=== PATIENT | female | born 2000 | race Caucasian/White ===

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

== ENCOUNTER 2019-01-07 16:00 | Outpatient (CLI) | payer MEDICAID | END 2019-01-07 16:01 | disposition home or self-care (01) | LOC: LAB 16:00 | PROVIDERS: ATTEND Nurse Practitioner Obstetrics & Gynecology | DX: Z36.8A Encounter for antenatal screening for other genetic defects (principal) | CPT/HCPCS: 36415; 81511; 81599 ==

== ENCOUNTER 2019-02-02 13:33 | Outpatient (CLI) | payer MEDICAID | END 2019-02-02 13:34 | disposition home or self-care (01) | LOC: LAB 13:33 | PROVIDERS: ATTEND Obstetrics & Gynecology | DX: Z36.8A Encounter for antenatal screening for other genetic defects (principal) | CPT/HCPCS: 36415; 81511; 81599 ==

== ENCOUNTER 2019-02-17 08:28 | Outpatient (CLI) | payer MEDICAID ==
--- NOTE | 2019-02-17 15:07 | Ultrasound Report ---
Reason: SCREENING Procedure Date: 02/17/2019 Accession Number: [id number] / [id number] Procedure: US - OB Detailed Eval CPT Code: FULL RESULT: EXAM: COMPLETE OBSTETRICAL ULTRASOUND EXAM DATE: 02/17/2019 10:58 AM. CLINICAL HISTORY: anatomic survey. COMPARISON: Ultrasound 12/14/2018 OB FIRST TRIMESTER 12/06/2018 9:20 AM. TECHNIQUE: Real-time sonographic evaluation of the fetus performed by the tag marker. Multiple visitor services representative static images were saved for review. DATING: Established EGA 19 weeks, 1 day with DENIS 07/13/2019 based on assigned dating and prior ultrasound. EGA 22 weeks, 0 days with DENIS 06/23/2019 based on discordant LMP. EGA 19 weeks, 1 day with DENIS 07/13/2019 based on the current ultrasound. GENERAL EVALUATION [place] . Cardiac activity: 148 bpm. movement: Visualized. Presentation: Variable Placenta: Posterior position. No evidence for previa. Umbilical cord: 3 vessel cord. Central placental cord origin. Amniotic fluid: Subjectively normal. MVP 5.5 cm. BIOMETRY Bi-Parietal Diameter (BPD): 4.3 cm, 19 weeks Head Circumference (HC): 16 cm, 19 weeks Abdominal Circumference (AC): 13.7 cm, 19 weeks, 1 day Femur Length (FL): 2.9 cm, 19 weeks 1 day Estimated Weight: 276 g, 45th percentile for 19 weeks, 1 day. ANATOMY The intracranial structures, profile, face/nose/lips, spine, 4 chamber heart and outflow tracts, stomach, abdominal wall and cord insertion, diaphragm, kidneys, bladder, and extremities were visualized and demonstrate no abnormality. MATERNAL STRUCTURES Uterus: Unremarkable. Cervix: Long and closed. Transabdominal length 4.2 cm. Right ovary/adnexa: Unremarkable. Left ovary/adnexa: Unremarkable. Free fluid: None. IMPRESSION: 1. Garber live intrauterine with gestational age 19 weeks, 1 day based on first ultrasound and today's exam. 2. Estimated weight is within expected limits for assigned dating. 3. Normal anatomic survey. No anatomic abnormalities are detected at this time. RADIA
== END 2019-02-17 08:29 | disposition home or self-care (01) ==
LOC: DI 08:28
PROVIDERS: ATTEND Obstetrics & Gynecology
DX: Z36.89 Encounter for other specified antenatal screening (principal)
CPT/HCPCS: 76811

== ENCOUNTER 2019-06-16 08:00 | Outpatient (CLI) | payer MEDICAID ==
[2019-06-16 20:50] LABS: TRICHOMONAS VAGINALIS DNA NEGATIVE (NEGATIVE)
== END 2019-06-16 23:59 | disposition home or self-care (01) ==
LOC: LAB.R 08:00
PROVIDERS: ATTEND Nurse Practitioner Obstetrics & Gynecology
DX: Z36.85 Encounter for antenatal screening for Streptococcus B (principal)
CPT/HCPCS: 87491; 87591; 87661; 87797

== ENCOUNTER 2019-06-16 12:19 | Outpatient (CLI) | payer MEDICAID ==
[2019-06-16 12:32] LABS: HGB - HEMOGLOBIN 12.5 g/dL (12.0-16.0); MEAN CORPUSCULAR HEMOGLOBIN 29.5 pg (27.0-31.0); MEAN CORPUSCULAR HGB CONC 33.5 g/dL (32.0-36.0); MEAN PLATELET VOLUME 10.7 fL (7.9-10.8); RED BLOOD COUNT 4.24 10^6/uL (4.20-5.40); WHITE BLOOD COUNT 9.8 x10^3/uL (4.8-10.8)
[2019-06-16 12:46] LABS: ALBUMIN 3.2 g/dL (3.2-5.5); ALBUMIN/GLOBULIN RATIO 0.8 (1.0-2.2); BILIRUBIN,TOTAL 0.3 mg/dL (0.2-1.0); CALCIUM 8.9 mg/dL (8.5-10.3); CREATININE 0.5 mg/dL (0.4-1.0); TOTAL PROTEIN 7.1 g/dL (6.7-8.2); URIC ACID 4.4 mg/dL (2.6-7.2)
[2019-06-16 12:58] LABS: CREATININE,URINE 42.4 mg/dL; PROTEIN/CREATININE RATIO,URINE 0.2 (<=0.2)
== END 2019-06-16 12:20 | disposition home or self-care (01) ==
LOC: LAB 12:19
PROVIDERS: ATTEND Nurse Practitioner Obstetrics & Gynecology
DX: O13.9 Gestational [pregnancy-induced] hypertension without significant proteinuria, unspecified trimester (principal); Z36.85 Encounter for antenatal screening for Streptococcus B
CPT/HCPCS: 36415; 80053; 82570; 84156; 84550; 85027; 87491; 87591; 87661; 87797

== ENCOUNTER 2019-07-09 20:49 | Inpatient (IN) | payer MEDICAID ==
[2019-07-09] MEDS ORDERED: SODIUM CHLORIDE FLUSH 0.9% 10 ML SYRINGE IVP PRN (20:57)
[2019-07-09] MEDS ORDERED: LACTATED RINGERS 1,000 ML IV SCH (21:00)
[2019-07-09] MEDS: miSOPROStoL 100 MCG TABLET BC SCH (22:15)
[2019-07-09 22:18] LABS: BASOPHILS % (AUTO) 0.4 %; EOSINOPHILS # (AUTO) 0.1 10^3/uL (0.0-0.7); EOSINOPHILS % (AUTO) 0.9 %; LYMPHOCYTES # (AUTO) 1.8 10^3/uL (1.5-3.5); LYMPHOCYTES % (AUTO) 17.5 %; MEAN CORPUSCULAR HEMOGLOBIN 29.1 pg (27.0-31.0); MEAN CORPUSCULAR HGB CONC 32.6 g/dL (32.0-36.0); MEAN CORPUSCULAR VOLUME 89.3 fL (81.0-99.0); MEAN PLATELET VOLUME 11.5 fL (7.9-10.8); MONOCYTES # (AUTO) 0.7 10^3/uL (0.0-1.0); MONOCYTES % (AUTO) 6.3 %; NEUTROPHILS # (AUTO) 7.8 10^3/uL (1.5-6.6); NEUTROPHILS % (AUTO) 74.3 %; PLT - PLATELET COUNT 270 10^3/uL (130-450); RED BLOOD COUNT 4.12 10^6/uL (4.20-5.40); RED CELL DISTRIBUTION WIDTH 15.3 % (12.0-15.0); WHITE BLOOD COUNT 10.5 x10^3/uL (4.8-10.8)
[2019-07-09] MEDS ORDERED: ZOLPIDEM 5 MG TABLET PO PRN (23:06)
[2019-07-10] MEDS ORDERED: SODIUM CHLORIDE FLUSH 0.9% 10 ML SYRINGE IVP SCH (01:00)
[2019-07-10] MEDS: miSOPROStoL 100 MCG TABLET BC SCH (02:34)
[2019-07-10] MEDS ORDERED: OXYTOCIN/SODIUM CHLORIDE 500 ML IV ONE (06:32)
[2019-07-10] MEDS ORDERED: OXYTOCIN 10 UNIT/ML VIAL ONE (06:35)
[2019-07-10] MEDS ORDERED: WITCH HAZEL/GLYCERIN 1 PAD TOP PRN (06:57)
[2019-07-10] MEDS ORDERED: HYDROCORTISONE 1% CREAM 28 GM TUBE PR PRN (06:57)
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
[2019-07-10] MEDS ORDERED: OXYTOCIN 10 UNIT/ML VIAL IVP ONE (07:09)
[2019-07-10] MEDS: OXYTOCIN/SODIUM CHLORIDE 500 ML IV PRN ×2 (07:11→09:48)
[2019-07-10] MEDS: ACETAMINOPHEN 500 MG TABLET PO SCH (07:29)
[2019-07-10] MEDS: IBUPROFEN 800 MG TABLET PO SCH ×2 (07:30→14:59)
--- NOTE | 2019-07-10 07:33 | DELIVERY NOTE ---
Delivery Note - Labor Labor: positive: Spontaneous - Delivery Method Delivery Method: positive: Spontaneous vaginal delivery - Cervical Ripening Method Cervical Ripening Method: positive: Misoprostil - Presentation Presentation: positive: Vertex - Nuchal Cord Nuchal Cord: positive: None - Amniotic Fluid Description Amniotic Fluid Description: positive: Clear - Episiotomy Type Episiotomy Type: positive: None - Laceration Laceration: positive: None - Delivery Outcome Delivery Outcome: positive: Livebirth - [place] : positive: Placed in direct skin contact with mother, Stimulated, Warmed, [place] used sex: positive: Female - Cord Cord: positive: 3 vessels - Placenta Placenta: positive: Intact, Spontaneous - Estimated Blood Loss Estimated Blood Loss (in cc): 350 - Post Delivery Events Post Delivery Events: positive: No post delivery events - Delivery Comments (Free Text/Narrative) Delivery Comments (Free Text/Narrative): Labor: This 18yo @ 39.4wks gestation by LMP c/w 8.4wk U/S presented on 07/09/2019 for elective induction of labor. Upon arrival SVE was deferred secondary to absence of contractions. FHR pattern demonstrated a Category I baseline throughout labor. She received 2 total doses of 50mcg misoprostol for pre-induction cervical ripening. Prior to her second dose of misoprostol she was not appreciating any contractions and denied pain/discomfort. She received her second dose of 50mcg misoprostol at approximately 0300 and shortly after noted some mild/moderate contractions. She walked the hallways for short period of time and then desired to use the jacuzzi for pain management. At approximately 0615 she felt increasingly uncomfortable and desired to get out of the jacuzzi. SROM occurred at 0625 as she sat down on the edge of the bed and was noted to be a moderate amount of clear fluid followed immediately by the urge to push. SVE c/c/+2. : Precipitous of viable female infant on 07/10/2019 at 0630 and delivered was performed by labor RN at the bedside. The was placed on maternal abdomen, stimulated, dried, and placed skin to skin. Apgars were 8/9 at 1 and 5 min respectively. The umbilical cord was doubly clamped and cut at 0633. Cord blood had been obtained. Upon my arrival at 0637 the patient was laying in the bed with her infant skin to skin and both mother and baby were noted to be in stable condition. Placenta delivered spontaneously and intact at 0640. 3VC. 10mg IM pitocin administered for hemostasis followed by initiation of pitocin IV for hemostasis. EBL 350mL. Fourth stage: Uterine fundus firm and there is no excessive bleeding. The perineum, vagina, and cervix were inspected and found to be intact. initiated. Family bonding well. Both mother and baby were left in stable condition.
[2019-07-10] MEDS ORDERED: miSOPROStoL 200 MCG TABLET ONE (09:29)
[2019-07-10] MEDS ORDERED: miSOPROStoL 200 MCG TABLET PO ONE (09:33)
[2019-07-10] MEDS ORDERED: METHYLERGONOVINE 0.2 MG/ML AMP ONE (09:54)
[2019-07-10 10:08] LABS: BASOPHILS # (AUTO) 0.1 10^3/uL (0.0-0.1); BASOPHILS % (AUTO) 0.4 %; EOSINOPHILS % (AUTO) 0.1 %; HGB - HEMOGLOBIN 10.9 g/dL (12.0-16.0); LYMPHOCYTES % (AUTO) 5.4 %; MEAN CORPUSCULAR HEMOGLOBIN 29.6 pg (27.0-31.0); MEAN CORPUSCULAR HGB CONC 33.2 g/dL (32.0-36.0); MEAN CORPUSCULAR VOLUME 89.1 fL (81.0-99.0); NEUTROPHILS # (AUTO) 17.1 10^3/uL (1.5-6.6); NEUTROPHILS % (AUTO) 88.3 %; PLT - PLATELET COUNT 269 10^3/uL (130-450); RED BLOOD COUNT 3.68 10^6/uL (4.20-5.40); RED CELL DISTRIBUTION WIDTH 15.2 % (12.0-15.0); WHITE BLOOD COUNT 19.3 x10^3/uL (4.8-10.8)
[2019-07-10] MEDS ORDERED: fentaNYL 100 MCG/2 ML VIAL IVP SCH ×2 (10:14→10:38)
[2019-07-10] MEDS ORDERED: HYDROcod/ACETAM 5/325 MG TABLET PO PRN ×2 (11:51→16:18)
--- NOTE | 2019-07-10 12:34 | PROVIDER PROGRESS NOTE ---
Subjective - Subjective Subjective: Phoned by SOTO RN who is taking care of pt with reports of increased vaginal bleeding with approximately 300ml of additional blood loss and 3-5 golf ball sized clots expelled from uterus in addition to uterus feeling boggy. Pt received 10mg IM pitocin immediately following delivery in addition to initiation of 1 completed bag of IV pitocin. 800mcg BC misoprostol administered Bolus 1 bag of IV pitocin Stat CBC ordered Stat ultrasound ordered to evaluate for retained products of conception. Reviewed potential recommendation for D&C if retained products are evident upon ultrasound. Results: CBC on admission Hgb 12.0; Hct 36.8 --> CBC now Hgb 10.9; Hct 32.8 Ultrasound pending Uterine fundus firm and bleeding well controlled following medication administration for management. Consult with Dr. Linares, termite control representative physician whom is in agreement with above plan and presented at the patient's bedside for discussion with pt and partner who verbalized understanding and agree to above plan. Objective - Vital Signs/Intake & Output Vital Signs: Vital Signs x48h Temp Pulse Resp BP Pulse Ox 07/10/19 12:03 36.6 C 07/10/19 10:21 107 H 135/83 H 99 07/10/19 10:10 116 H 16 135/83 H 99 07/10/19 09:51 117 H 123/79 07/10/19 09:45 110 H 115/76 07/10/19 08:45 121 H 129/84 H 07/10/19 08:30 122 H 124/78 07/10/19 08:16 118 H 127/81 H 07/10/19 08:00 97 134/93 H 07/10/19 07:45 95 125/76 07/10/19 07:30 99 120/79 Intake & Output: Intake & Output 07/07/19 07/08/19 07/09/19 07/10/19 23:59 23:59 23:59 23:59 Intake Total 500 Output Total 250 Balance 250 - Lab Results Fish Bones: 07/10/19 10:03 Other Labs: Lab Results x24hrs 07/10/19 07/09/19 Range/Units 10:03 22:00 WBC 19.3 H 10.5 (4.8-10.8) x10^3/uL RBC 3.68 L 4.12 L (4.20-5.40) 10^6/uL Hgb 10.9 L 12.0 (12.0-16.0) g/dL Hct 32.8 L 36.8 L (37.0-47.0) % MCV 89.1 89.3 (81.0-99.0) fL MCH 29.6 29.1 (27.0-31.0) pg MCHC 33.2 32.6 (32.0-36.0) g/dL RDW 15.2 H 15.3 H (12.0-15.0) % Plt Count 269 270 (130-450) 10^3/uL MPV 11.0 H 11.5 H (7.9-10.8) fL Neut # (Auto) 17.1 H 7.8 H (1.5-6.6) 10^3/uL Lymph # (Auto) 1.0 L 1.8 (1.5-3.5) 10^3/uL [place] # (Auto) 1.0 0.7 (0.0-1.0) 10^3/uL Eos # (Auto) 0.0 0.1 (0.0-0.7) 10^3/uL Baso # (Auto) 0.1 0.0 (0.0-0.1) 10^3/uL Absolute Nucleated RBC 0.00 0.00 x10^3/uL Nucleated RBC % 0.0 0.0 /100WBC
--- NOTE | 2019-07-10 13:09 | Ultrasound Report ---
Reason: bleeding Procedure Date: 07/10/2019 Accession Number: [id number] Procedure: US - Pelvic Limited or F/U CPT Code: Final Report FULL RESULT: EXAM: PELVIC ULTRASOUND EXAM DATE: 07/10/2019 11:26 AM. CLINICAL HISTORY: bleeding. COMPARISON: None. TECHNIQUE: Realtime transabdominal pelvic scan performed to identify the uterus and adnexa and as an overview of other pelvic structures, and to provide greater detail of the uterus and adnexa, with static image documentation. FINDINGS: Uterus: 16.6 x 8.6 x 8.4 cm, volume 627 cc. Anteverted position. Enlarged. Heterogeneous. Masses: None. Endometrium: Transabdominal measurement of the endometrium measures approximately 30 mm inferiorly and 4 mm superiorly. Complex material is present within the endometrial cavity without increased vascularity largely within the lower uterine segment. Cervix: Complex material present within the endocervical canal where visualized. Right Ovary: 3.6 x 1.7 x 2.4 cm, volume 7.6 cc. Normal echotexture. Left Ovary: 2.2 x 1.3 x 1.7 cm, volume 2.5 cc. Normal echotexture. Free Fluid: None. Other: None. IMPRESSION: 1. Enlarged heterogeneous uterus consistent with state. 2. Extensive volume of complex avascular material largely within the lower uterine segment of the uterus within the endometrial cavity most likely representing blood products/clot rather than retained tissue noting that larger volumes of blood product/clot can obscure small volumes of retained tissue. 3. Normal ovaries. RADIA
[2019-07-10] MEDS: DOCUSATE SODIUM 100 MG CAPSULE PO SCH ×2 (15:00→20:05)
[2019-07-10] MEDS ORDERED: fentaNYL 100 MCG/2 ML VIAL IVP ONE (16:47)
[2019-07-10] MEDS ORDERED: fentaNYL 100 MCG/2 ML VIAL ONE (16:49)
--- NOTE | 2019-07-10 17:21 | PROVIDER PROGRESS NOTE ---
Subjective - Subjective Subjective: S: Bonding well with baby. Has been without difficulty throughout the day. Feeling some cramping but this has gradually improved. She has not passed any additional clots. Her bleeding remains scant. O: BP normotensive. 100mcg Fentanyl IVP administered prior to vigorous fundal massage which results in small clot expelled. Uterine fundus remains firm at U-1. A: 18yo -->P1 day of delivery s/p TSVD of viable female infant this morning at 0630am. S/p 2 complete bags of pitocin administered previously in addition to 10mg IM pitocin immediately s/p delivery s/p 800mcg BC misoprostol P: Continue expectant management. Type and crossmatch for 2 units as a precaution. Repeat CBC in the am Reviewed plan of care with donor services team leader physician who is in agreement with expectant management Reviewed plan of care with pt and partner at the bedside who are all in agreement with above plan and deny further questions or concerns at this time. Objective - Vital Signs/Intake & Output Vital Signs: Vital Signs x48h Temp Pulse Resp BP Pulse Ox 07/10/19 15:00 36.6 C 94 16 122/68 99 07/10/19 12:03 36.6 C 07/10/19 10:21 107 H 135/83 H 99 07/10/19 10:10 116 H 16 135/83 H 99 07/10/19 09:51 117 H 123/79 07/10/19 09:45 110 H 115/76 Intake & Output: Intake & Output 07/07/19 07/08/19 07/09/19 07/10/19 23:59 23:59 23:59 23:59 Intake Total 500 Output Total 450 Balance 50 - Lab Results Fish Bones: 07/10/19 10:03 Other Labs: Lab Results x24hrs 07/10/19 07/09/19 Range/Units 10:03 22:00 WBC 19.3 H 10.5 (4.8-10.8) x10^3/uL RBC 3.68 L 4.12 L (4.20-5.40) 10^6/uL Hgb 10.9 L 12.0 (12.0-16.0) g/dL Hct 32.8 L 36.8 L (37.0-47.0) % MCV 89.1 89.3 (81.0-99.0) fL MCH 29.6 29.1 (27.0-31.0) pg MCHC 33.2 32.6 (32.0-36.0) g/dL RDW 15.2 H 15.3 H (12.0-15.0) % Plt Count 269 270 (130-450) 10^3/uL MPV 11.0 H 11.5 H (7.9-10.8) fL Neut # (Auto) 17.1 H 7.8 H (1.5-6.6) 10^3/uL Lymph # (Auto) 1.0 L 1.8 (1.5-3.5) 10^3/uL [facility] # (Auto) 1.0 0.7 (0.0-1.0) 10^3/uL Eos # (Auto) 0.0 0.1 (0.0-0.7) 10^3/uL Baso # (Auto) 0.1 0.0 (0.0-0.1) 10^3/uL Absolute Nucleated RBC 0.00 0.00 x10^3/uL Nucleated RBC % 0.0 0.0 /100WBC
[2019-07-11] MEDS: ACETAMINOPHEN 500 MG TABLET PO SCH ×3 (04:34→20:32)
[2019-07-11] MEDS: IBUPROFEN 800 MG TABLET PO SCH ×3 (04:34→18:24)
[2019-07-11 06:29] LABS: BASOPHILS % (AUTO) 0.4 %; EOSINOPHILS # (AUTO) 0.1 10^3/uL (0.0-0.7); EOSINOPHILS % (AUTO) 1.3 %; HGB - HEMOGLOBIN 9.3 g/dL (12.0-16.0); LYMPHOCYTES # (AUTO) 1.7 10^3/uL (1.5-3.5); LYMPHOCYTES % (AUTO) 18.4 %; MEAN CORPUSCULAR HEMOGLOBIN 29.3 pg (27.0-31.0); MEAN CORPUSCULAR HGB CONC 32.5 g/dL (32.0-36.0); MEAN CORPUSCULAR VOLUME 90.2 fL (81.0-99.0); MEAN PLATELET VOLUME 10.7 fL (7.9-10.8); MONOCYTES # (AUTO) 0.8 10^3/uL (0.0-1.0); NEUTROPHILS # (AUTO) 6.7 10^3/uL (1.5-6.6); NEUTROPHILS % (AUTO) 71.5 %; PLT - PLATELET COUNT 180 10^3/uL (130-450); RED BLOOD COUNT 3.17 10^6/uL (4.20-5.40); RED CELL DISTRIBUTION WIDTH 15.5 % (12.0-15.0); WHITE BLOOD COUNT 9.4 x10^3/uL (4.8-10.8)
--- NOTE | 2019-07-11 09:06 | PROVIDER PROGRESS NOTE ---
Subjective - Subjective Subjective: S: Bonding well with baby. with little difficultly other than they are having trouble at times getting baby to wake up enough to feed or to stay awake at the breast during a feed. She states when they do feed she can feel a gentle tug rather than a pinch and overall nursing feels comfortable. She states her pain is feeling much better controlled other than she still reports some increased discomfort when her fundus is checked. She is rating her pain 2-3/10 and does feel well controlled with ibuprofen and tylenol. Bleeding decreased and is light. She did not have any larger clots expelled last night. She denies feeling light headed or dizzy. She states they were able to get some good rest in last night and they do understanding that they are to work on getting more consistent feeds in today and throughout the night. O: Hgb 12.0-->10.9-->9.3 Hct 36.8-->32.8-->28.6 WBC 10.5-->19.3-->9.4 PLT 270-->269-->180 T 36.9, BP 126/85, HR 94-100, RR 18 Heart RRR w/o M/G/R, lungs CTAB, abdomen soft with fundus firm at U-1 with some tenderness noted upon palpation however the tenderness is noted prior to reaching the fundus and starts almost immediately when touching her abdomen. Pt historically suffers from anxiety and at this time it is felt that there is likely an associated anxiety response to her slight tenderness. She has no other signs of infection (WBC WNL, afebrile). Perineum intact, light lochia rubra. Bilateral LE's no edema. A: 18yo -->P1 s/p TSVD of viable female infant s/p precipitous vaginal delivery P: Continue routine pp care and medications. Repeat CBC in the morning. Plan discharge home tomorrow. Pt and partner at the bedside verbalized understanding and agree to above plan. They deny further questions or concerns at this time. Objective - Vital Signs/Intake & Output Vital Signs: Vital Signs x48h Temp Pulse Resp BP Pulse Ox 07/11/19 08:15 36.9 C 100 18 126/85 H 97 07/11/19 04:30 97 18 130/80 100 Intake & Output: Intake & Output 07/08/19 07/09/19 07/10/19 07/11/19 23:59 23:59 23:59 23:59 Intake Total 500 500 Output Total 700 350 Balance -200 150 - Lab Results Fish Bones: 07/11/19 06:25 Other Labs: Lab Results x24hrs 07/11/19 07/10/19 07/09/19 Range/Units 06:25 10:03 23:02 WBC 9.4 19.3 H (4.8-10.8) x10^3/uL RBC 3.17 L 3.68 L (4.20-5.40) 10^6/uL Hgb 9.3 L 10.9 L (12.0-16.0) g/dL Hct 28.6 L 32.8 L (37.0-47.0) % MCV 90.2 89.1 (81.0-99.0) fL MCH 29.3 29.6 (27.0-31.0) pg MCHC 32.5 33.2 (32.0-36.0) g/dL RDW 15.5 H 15.2 H (12.0-15.0) % Plt Count 180 269 (130-450) 10^3/uL MPV 10.7 11.0 H (7.9-10.8) fL Neut # (Auto) 6.7 H 17.1 H (1.5-6.6) 10^3/uL Lymph # (Auto) 1.7 1.0 L (1.5-3.5) 10^3/uL [facility] # (Auto) 0.8 1.0 (0.0-1.0) 10^3/uL Eos # (Auto) 0.1 0.0 (0.0-0.7) 10^3/uL Baso # (Auto) 0.0 0.1 (0.0-0.1) 10^3/uL Absolute Nucleated RBC 0.00 0.00 x10^3/uL Nucleated RBC % 0.0 0.0 /100WBC Blood Type O POSITIVE Antibody Screen NEGATIVE Crossmatch IS Only See Detail
[2019-07-11] MEDS: DOCUSATE SODIUM 100 MG CAPSULE PO SCH ×2 (11:50→20:32)
[2019-07-12] MEDS: IBUPROFEN 800 MG TABLET PO SCH ×2 (00:36→06:38)
[2019-07-12] MEDS: ACETAMINOPHEN 500 MG TABLET PO SCH (04:36)
[2019-07-12 08:11] VITALS: BP 126/83
--- NOTE | 2019-07-12 08:23 | Discharge Plan ---
Discharge Plan Problem Reviewed?: Yes Disposition: Home, Self Care Condition: Good Diet: Regular Activity Restrictions: No Restrictions Shower Restrictions: No Assistance Devices: Wheelchair Weight Bearing: Full Weight No Smoking: If you smoke, Please STOP! Call for help. Follow-up with: Madina Harden CNM, ARNP [Provider Admit Priv/Credential] -
--- NOTE | 2019-07-12 08:29 | PROVIDER PROGRESS NOTE ---
Subjective - Subjective Subjective: FINAL PROGRESS NOTE: S: Bonding well with baby. without difficulty and states she was more vigorous at the breast all throughout the night. Experiencing some nipple tenderness bilaterally but overall feeling okay. Bleeding decreased and is light. Pain well controlled with oral medications and she states over night her pain has been less than it was yesterday. They strongly desire to go home today. O: Heart RRR w/o M/G/R, lungs CTAB, abdomen soft and nontender with fundus firm at U-2, perineum intact, bilateral LE's no edema. A: 18yo -->P1 s/p TSVD of viable female infant Perineum intact P: Reviewed pp self care and warning s/sx Advised continuation of PNV while Advised continuation of ibuprofen and tylenol OTC as needed for pain management Return in 1 week for support visit or in 3 weeks for routine pp visit or sooner PRN. Pt and partner at the bedside both verbalized understanding and agree to above plan. They deny further questions or concerns at this time. Objective - Vital Signs/Intake & Output Vital Signs: Vital Signs x48h Temp Pulse Resp BP Pulse Ox 07/12/19 08:00 36.5 C 100 16 126/83 H 99 07/12/19 04:28 37.0 C 101 H 16 128/71 98 Intake & Output: Intake & Output 07/09/19 07/10/19 07/11/19 07/12/19 23:59 23:59 23:59 23:59 Intake Total 500 500 Output Total 700 350 Balance -200 150 - Lab Results Fish Bones: 07/11/19 06:25
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
[2019-07-12] MEDS: DOCUSATE SODIUM 100 MG CAPSULE PO SCH (11:15)
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
== END 2019-07-12 12:26 | disposition home or self-care (01) | DRG 806 ==
LOC: WFO 20:49 → FBP 20:53 → WFO 20:56 → FBP 20:57 → OBSVTOIN 07-10 14:32 → FBP 07-11 09:10
PROVIDERS: ADMIT Nurse Practitioner Obstetrics & Gynecology; ATTEND Nurse Practitioner Obstetrics & Gynecology
PROC: 10E0XZZ Delivery of Products of Conception, External Approach (ICD-10-PCS; principal; 2019-07-10)
DX: O99.344 Other mental disorders complicating childbirth (principal); O72.1 Other immediate postpartum hemorrhage; Z37.0 Single live birth; F41.9 Anxiety disorder, unspecified; O62.3 Precipitate labor; Z3A.39 39 weeks gestation of pregnancy; Z87.898 Personal history of other specified conditions
CPT/HCPCS: 36415; 76857; 85025; 86850; 86900; 86901; 86920; A9270; G0378; J7120

== ENCOUNTER 2019-08-24 16:13 | Emergency (ER) | payer MEDICAID ==
--- NOTE | 2019-08-24 16:34 | ED Physician Documentation ---
PD HPI LOWER EXT INJURY - Stated complaint Stated Complaint: LT ANKLE INJ - Chief complaint Chief Complaint: Ext Problem - History obtained from History obtained from: Patient - History of Present Illness PD HPI LOW EXT INJURY LOCATION: Left, Ankle, Foot Type of injury: Fall, Twist Where injury occurred: Home Timing - onset: How many days ago (3) Timing - duration: Days (3) Timing - details: Gradual onset Pain level max: 7 Pain level now: 6 Improved by: Rest Worsened by: Moving, Palpating Associated symptoms: No: Weakness, Numbness, Tingling Contributing factors: No: Anticoagulated Recently seen: Not recently seen Review of Systems : denies: Now EGA Skin: denies: Rash Musculoskeletal: denies: Neck pain, Back pain Neurologic: denies: Headache PD PAST MEDICAL HISTORY - Past Medical History Cardiovascular: None Respiratory: None Neuro: None Endocrine/Autoimmune: None GI: Ulcers 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 : None HEENT: None Psych: Depression, Anxiety Musculoskeletal: None Derm: None - Past Surgical History Past Surgical History: Yes General: Cholecystectomy HEENT: Tonsil/Adenoidectomy - Present Medications Home Medications: Ambulatory Orders Medication Instructions Recorded Confirmed Metoclopramide [Reglan] 10 mg PO Q6H PRN #10 tablet 11/17/18 Nitrofurantoin Monohyd/M-Cryst 100 mg PO BID #10 capsule 11/17/18 [Macrobid 100 mg Capsule] Pnv No.95/Ferrous Fum/Folic AC 1 tab PO DAILY 11/17/18 11/17/18 [ Caplet] - Allergies Allergies/Adverse Reactions: Allergies Allergy/AdvReac Type Severity Reaction Status Date / Time No Known Drug Allergies Allergy Verified 08/24/19 16:18 - Social History Does the pt smoke?: No Smoking Status: Never smoker Does the pt drink ETOH?: No Does the pt have substance abuse?: No - Immunizations Immunizations are current?: Yes - POLST Patient has POLST: No PD ED PE NORMAL - Vitals Vital signs reviewed: Yes - General General: Alert and oriented X 3, No acute distress - Derm Derm: Warm and dry - Extremities Extremities: Other (Tender to palpation over the lateral aspect of the left foot as well as the lateral malleolus of the left ankle. Neurovascular intact. No tenderness over the proximal tibia or fibula.) - Neuro Neuro: Alert and oriented X 3 Results - Vitals Vitals: Vital Signs - 24 hr 08/24/19 16:15 Temperature 36.4 C L Heart Rate 104 H Respiratory 22 Rate Blood Pressure 131/92 H O2 Saturation 97 Oxygen O2 Source Room air - Rads (name of study) Left ankle x-ray Radiology: Prelim report reviewed, EMP read contemporaneously, See rad report (No acute abnormality) L foot xray Radiology: Prelim report reviewed, EMP read contemporaneously, See rad report (No acute abnormality) PD MEDICAL DECISION MAKING - ED course Complexity details: reviewed results, re-evaluated patient, considered differential, d/w patient ED course: Patient with a left ankle sprain. Placed in a gel splint for comfort. She does not have any fractures on x-ray. We will make her weightbearing as tolerated. Patient counseled regarding signs and symptoms for which I believe and urgent re-evaluation would be necessary. Patient with good understanding of and agreement to plan and is comfortable going home at this time This document was made in part using voice recognition software. While efforts are made to proofread this document, sound alike and grammatical errors may occur. Departure - Departure Disposition: 01 Home, Self Care Clinical Impression: Sprain of ankle, left Qualifiers: Encounter type: initial encounter Involved ligament of ankle: unspecified ligament Qualified Code(s): S93.402A - Sprain of unspecified ligament of left ankle, initial encounter Condition: Good Instructions: ED Sprain Ankle Follow-Up: Shena Craig MD [Primary Care Provider] - (In 1 to 2 weeks) Comments: Return if you worsen. You can bear weight as tolerated. Use Motrin and Tylenol as needed for pain. Your x-rays do not show any fractures today.
--- NOTE | 2019-08-24 17:52 | XRAY Report ---
Reason: fall, L ankle and foot pain Procedure Date: 08/24/2019 Accession Number: [id number] / [id number] Procedure: XR - Foot 3 View LT CPT Code: Final Report FULL RESULT: EXAM: LEFT FOOT RADIOGRAPHY EXAM DATE: 08/24/2019 05:02 PM. CLINICAL HISTORY: Fall, L ankle and foot pain. COMPARISON: None. TECHNIQUE: 3 views. FINDINGS: Bones: Normal. No fractures or bone lesions. Joints: Normal. No subluxations. Soft Tissues: Calcifications at the Achilles tendon insertion. Soft tissue swelling. IMPRESSION: Normal foot radiography. RADIA
--- NOTE | 2019-08-24 17:52 | XRAY Report ---
Reason: fall, L ankle and foot pain Procedure Date: 08/24/2019 Accession Number: [id number] / [id number] Procedure: XR - Ankle 3 View LT CPT Code: Final Report FULL RESULT: EXAM: LEFT ANKLE RADIOGRAPHY EXAM DATE: 08/24/2019 05:00 PM. CLINICAL HISTORY: Fall, L ankle and foot pain. COMPARISON: FOOT 3 VIEW LT 08/24/2019 4:38 PM. TECHNIQUE: 3 views. FINDINGS: Bones: Normal. No fractures or bone lesions. Joints: Normal. No effusion. No subluxations. The ankle mortise is normally aligned. Soft Tissues: Calcifications Achilles tendon insertion. No soft tissue swelling. IMPRESSION: Calcifications at the Achilles tendon insertion RADIA
[2019-08-24 18:09] VITALS: BP 124/84
== END 2019-08-24 18:10 | disposition home or self-care (01) ==
LOC: ED 16:13
DX: S93.402A Sprain of unspecified ligament of left ankle, initial encounter (principal); X50.1XXA Overexertion from prolonged static or awkward postures, initial encounter; Y93.01 Activity, walking, marching and hiking; Y92.89 Other specified places as the place of occurrence of the external cause
CPT/HCPCS: 99283

== ENCOUNTER 2020-12-09 19:03 | Emergency (ER) | payer MEDICAID ==
[2020-12-09 19:42] LABS: BASOPHILS # (AUTO) 0.1 10^3/uL (0.0-0.1); BASOPHILS % (AUTO) 0.3 %; EOSINOPHILS # (AUTO) 0.1 10^3/uL (0.0-0.7); EOSINOPHILS % (AUTO) 0.4 %; HCT - HEMATOCRIT 40.9 % (37.0-47.0); HGB - HEMOGLOBIN 13.9 g/dL (12.0-16.0); LYMPHOCYTES # (AUTO) 1.7 10^3/uL (1.5-3.5); LYMPHOCYTES % (AUTO) 9.1 %; MEAN CORPUSCULAR HEMOGLOBIN 29.4 pg (27.0-31.0); MEAN CORPUSCULAR VOLUME 86.7 fL (81.0-99.0); MEAN PLATELET VOLUME 10.2 fL (7.9-10.8); MONOCYTES # (AUTO) 1.3 10^3/uL (0.0-1.0); MONOCYTES % (AUTO) 6.7 %; NEUTROPHILS # (AUTO) 15.7 10^3/uL (1.5-6.6); NEUTROPHILS % (AUTO) 83.1 %; PLT - PLATELET COUNT 302 10^3/uL (130-450); RED BLOOD COUNT 4.72 10^6/uL (4.20-5.40); RED CELL DISTRIBUTION WIDTH 13.1 % (12.0-15.0); WHITE BLOOD COUNT 18.9 x10^3/uL (4.8-10.8)
[2020-12-09 19:44] LABS: BILIRUBIN,URINE NEGATIVE (NEGATIVE); GLUCOSE, URINE (UA) NEGATIVE (NEGATIVE); KETONES,URINE (UA) NEGATIVE (NEGATIVE); LEUKOCYTE ESTERASE, URINE NEGATIVE (NEGATIVE); NITRITE,URINE NEGATIVE (NEGATIVE); OCCULT BLOOD,URINE LARGE (NEGATIVE); PH,URINE 7.5 PH (5.0-7.5); PROTEIN,URINE TRACE mg/dL (NEGATIVE); UROBILINOGEN,URINE 0.2 (NORMAL) E.U./dL (NORMAL)
[2020-12-09 19:46] LABS: CLARITY,URINE HAZY (CLEAR); HCG UR QUAL NEGATIVE
[2020-12-09 19:55] LABS: ALBUMIN/GLOBULIN RATIO 1.4 (1.0-2.2); BILIRUBIN,TOTAL 1.2 mg/dL (0.2-1.0); CALCIUM 9.7 mg/dL (8.5-10.3); CREATININE 0.7 mg/dL (0.4-1.0); POTASSIUM 3.8 mmol/L (3.5-5.0); TOTAL PROTEIN 8.5 g/dL (6.7-8.2)
[2020-12-09 20:38] LABS: BACTERIA,URINE Rare /HPF (None Seen); RBC,URINE TNTC /HPF (0-5); SQUAMOUS EPITHELIAL CELL,UR FEW Squamous (<= Few); WBC,URINE 0-3 /HPF (0-5)
[2020-12-09] MEDS ORDERED: ONDANSETRON 4 MG/2 ML VIAL IVP STA (20:38)
[2020-12-09] MEDS ORDERED: SODIUM CHLORIDE 0.9% 1,000 ML IV STA (20:49)
[2020-12-09] MEDS ORDERED: KETOROLAC 15 MG/ML VIAL IVP STA (20:50)
[2020-12-09] MEDS ORDERED: MORPHINE 2 MG/ML CARPUJECT IVP STA (20:56)
--- NOTE | 2020-12-09 20:56 | ED Physician Documentation ---
History of Present Illness - Stated complaint Stated Complaint: LLQ PX/NAUSEA - Chief complaint Chief Complaint: Abd Pain - History obtained from History obtained from: Patient, Family (mom) - Additonal information Additional information: 28-year-old woman with past medical history of constipation, gallstones status post cholecystectomy, presents with sudden onset left lower quadrant pain at 12:30 PM, constant since that time, severe, associated with nausea no vomiting. Patient is currently menstruating. Denies urinary symptoms, fever, back pain, diarrhea. Last BM yesterday was normal with no blood in the stool. FH diverticulitis, ovarian cancer Review of Systems Ten Systems: 10 systems reviewed and negative Constitutional: denies: Fever, Chills GI: reports: Abdominal Pain, Nausea, Constipation. denies: Vomiting, Diarrhea : reports: Vaginal bleeding. 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 : None HEENT: None Psych: Depression, Anxiety Musculoskeletal: None Derm: None - Past Surgical History Past Surgical History: Yes General: Cholecystectomy HEENT: Tonsil/Adenoidectomy - Present Medications Home Medications: Ambulatory Orders Medication Instructions Recorded Confirmed Ondansetron Odt [Zofran Odt] 4 mg TL Q6H PRN #10 tablet 12/10/20 - Allergies Allergies/Adverse Reactions: Allergies Allergy/AdvReac Type Severity Reaction Status Date / Time No Known Drug Allergies Allergy Verified 12/09/20 19:07 - Social History Does the pt smoke?: No Smoking Status: Never smoker Does the pt drink ETOH?: No Does the pt have substance abuse?: No - Immunizations Immunizations are current?: Yes - POLST Patient has POLST: No PD ED PE NORMAL - Vitals Vital signs reviewed: Yes - General General: Alert and oriented X 3, Well developed/nourished, Other (tearful) - HEENT HEENT: Atraumatic, PERRL, EOMI - Neck Neck: Supple, no meningeal sign - Cardiac Cardiac: Other (tachycardic rate, reg rhythm) - Respiratory Respiratory: No respiratory distress - Abdomen Abdomen: Non tender, Non distended, Other (LLQ ttp otherwise ntnd) - Back Back: No CVA TTP - Derm Derm: Normal color, Warm and dry - Extremities Extremities: No deformity - Neuro Neuro: Alert and oriented X 3, No motor deficit, No sensory deficit - Psych Psych: Normal mood, Normal affect Results - Vitals Vitals: Vital Signs - 24 hr 12/09/20 12/09/20 12/09/20 19:07 19:42 21:10 Temperature 37.4 C 36.8 C Heart Rate 125 H 129 H 90 Respiratory 18 20 18 Rate Blood Pressure 150/99 H 118/88 H 104/62 O2 Saturation 100 100 100 12/09/20 12/10/20 12/10/20 23:00 01:00 01:55 Temperature 35.8 C L Heart Rate 100 88 77 Respiratory 16 16 16 Rate Blood Pressure 110/76 112/76 105/70 O2 Saturation 98 97 100 Oxygen O2 Source Room air - Labs Labs: Laboratory Tests 12/09/20 12/09/20 12/09/20 19:20 19:20 19:36 WBC 18.9 H RBC 4.72 Hgb 13.9 Hct 40.9 MCV 86.7 MCH 29.4 MCHC 34.0 RDW 13.1 Plt Count 302 MPV 10.2 Neut # (Auto) 15.7 H Lymph # (Auto) 1.7 [place] # (Auto) 1.3 H Eos # (Auto) 0.1 Baso # (Auto) 0.1 Absolute Nucleated RBC 0.00 Nucleated RBC % 0.0 Sodium 136 Potassium 3.8 Chloride 102 Carbon Dioxide 23 Anion Gap 11.0 BUN 15 Creatinine 0.7 Estimated GFR (MDRD) 106 Glucose 91 Calcium 9.7 Total Bilirubin 1.2 H AST 17 ALT 19 Alkaline Phosphatase 74 Total Protein 8.5 H Albumin 5.0 Globulin 3.5 Albumin/Globulin Ratio 1.4 Lipase 22 Urine Color YELLOW Urine Clarity HAZY Urine pH 7.5 Ur Specific [place] 1.015 Urine Protein TRACE Urine Glucose (UA) NEGATIVE Urine Ketones NEGATIVE Urine Occult Blood LARGE H Urine Nitrite NEGATIVE Urine Bilirubin NEGATIVE Urine Urobilinogen 0.2 (NORMAL) Ur Leukocyte Esterase NEGATIVE Urine RBC TNTC H Urine WBC 0-3 Ur Squamous Epith Cells FEW Squamous Urine Bacteria Rare Ur Microscopic Review INDICATED Urine Culture Comments NOT INDICATED Urine HCG, Qual NEGATIVE PD MEDICAL DECISION MAKING - ED course ED course: 20-year-old presented with sudden onset left lower quadrant pain, significant leukocytosis. Will obtain CT and ultrasound to evaluate. CT and ultrasound unremarkable. Patient feeling better after symptomatic management. Return precautions given. 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 Departure - Departure Disposition: 01 Home, Self Care Clinical Impression: Abdominal pain, Nausea Condition: Good Instructions: ED Abdominal Pain Unkn Cause Prescriptions: Ondansetron Odt [Zofran Odt] 4 mg TL Q6H PRN #10 tablet PRN Reason: Nausea / Vomiting Comments: You are seen in the emergency department for abdominal pain. You are not and your urine does not show signs of infection. Your CT and ultrasound were normal and had normal blood flow to the ovaries. Your lab work was normal with the exception of an elevated white blood cell count of 18. This is a nonspecific sign of inflammation in the body. You should follow-up with your primary doctor and with your SILVER LAP MACHINE TENDER in regards to the symptoms. Return to the emergency department if you have any new or worsening symptoms or other concerns. Discharge Date/Time: 12/10/20 02:21
[2020-12-09] MEDS ORDERED: IOPAMIDOL-300 100 ML VIAL ONE (21:21)
[2020-12-09] MEDS ORDERED: IOPAMIDOL-300 100 ML VIAL IVP ONE (21:56)
[2020-12-10] MEDS ORDERED: HYDROmorphone 1 MG/ML CARPUJECT IVP STA (01:03)
[2020-12-10] MEDS ORDERED: oxyCODONE/ACET 5/325 Prepack 4 PO STA (01:53)
[2020-12-10 01:56] VITALS: BP 105/70
--- NOTE | 2020-12-10 09:54 | Ultrasound Report ---
PROCEDURE: Pelvic w/Transvag+Doppler Comp INDICATIONS: sudden LLQ pain 12:30pm TECHNIQUE: Real-time scanning was performed of the pelvic organs, with image documentation. Additional endovagi nal scanning was necessary due to incomplete visualization of the adnexal and endometrial structures by transabdominal scanning. COMPARISON: Prior pelvic ultrasound, 07/09/2020. Correlation is made with abdomen and pelvis CT, 2020. FINDINGS: No pathologic free abdominal or pelvic fluid. Uterus: Uterus is normal in size at 8.9 x 4.7 x 5.6 cm. The endometrium measures 21 mm in combined thickness. Ovaries: The right ovary measures 3.7 x 2.1 x 2.4 cm and demonstrates an echogenic solid focus withi n it that measures 9 mm. The left ovary measures 3.8 x 2.5 x 3.2 cm and demonstrates a solid vascular structure within it that measures 2.2 x 2.2 x 2 cm. Normal-appearing arterial waveforms are confirmed to each ovary. No adnexal masses are seen on either side. IMPRESSION: Likely hemorrhagic cyst seen of the left ovary. Differential diagnosis includes a corpus luteum. If c linically appropriate, please consider a short-term follow-up ultrasound in 6 weeks to ensure resolut ion/improvement. Negative for ovarian torsion. Potential right ovarian dermoid. Mildly thickened endometrial stripe measuring 21 mm. This is improved compared to the 07/10/2019 exami nation. Note: No significant discrepancy from the preliminary report. Reviewed by: Joel Artis MD on 12/10/2020 8:53 AM YAIR Approved by: Joel Artis MD on 12/10/2020 8:53 AM YAIR Station ID: [id number]
--- NOTE | 2020-12-10 09:58 | CT Report ---
PROCEDURE: Abdomen/Pelvis W INDICATIONS: LLQ pain CONTRAST: IV CONTRAST: Isovue 300 ml: 100 PO CONTRAST: *NO PO CONTRAST TECHNIQUE: After the administration of IV contrast, 5 mm thick sections acquired from the diaphragms to the symp hysis. 5 mm thick coronal and sagittal reformats were acquired. For radiation dose reduction, the f ollowing was used: automated exposure control, adjustment of mA and/or kV according to patient size. COMPARISON: Correlation is made with the accompanying pelvic ultrasound, 12/09/2020. FINDINGS: Image quality: Excellent. ABDOMEN: Lung bases: Lung bases are clear. Heart size is normal. Solid organs: Liver and spleen are normal in size and enhancement. Gallbladder has been removed. B iliary system is non dilated. Pancreas enhances normally. No adrenal nodules. Kidneys demonstrate normal size and enhancement, without hydronephrosis. Peritoneum and bowel: Bowel loops demonstrate normal wall thickness and caliber. No free fluid or a ir. A normal appendix is incidentally noted. Nodes and vessels: No retroperitoneal or mesenteric adenopathy by size criteria. Aorta and inferior vena cava are normal in size. Miscellaneous: A tiny fat-containing periumbilical hernia is seen. PELVIS: Genitourinary: Bladder wall thickness is normal. Within the left ovary, there is a hypervascular st ructure that measures up to 1.6 cm. Miscellaneous: No inguinal hernias or adenopathy. Bones: No suspicious bony lesions. No vertebral body compression fractures. This patient has trans itional anatomy. For the purposes of this examination, the level with the small vestigial ribs is con sidered to be T12. By this numbering scheme, the L5 level is transitional and highly sacralized. IMPRESSION: No acute abnormality is seen to explain the patient's presenting history. Within the left ovary, there is a hypervascular lesion, which may represent a corpus luteum. Differen tial diagnosis includes a hemorrhagic cyst, however. Incidental note is made of: Cholecystectomy Tiny fat-containing periumbilical hernia Transitional lumbar anatomy, with a highly sacralized L5 level. Note: No significant discrepancy from the preliminary report. Reviewed by: Joel Artis MD on 12/10/2020 8:57 AM YAIR Approved by: Joel Artis MD on 12/10/2020 8:57 AM YAIR Station ID: [id number]
== END 2020-12-10 02:21 | disposition home or self-care (01) ==
LOC: ED 19:03
DX: R10.32 Left lower quadrant pain (principal); R11.0 Nausea; D72.829 Elevated white blood cell count, unspecified; N83.202 Unspecified ovarian cyst, left side; Z80.41 Family history of malignant neoplasm of ovary; Z83.79 Family history of other diseases of the digestive system; Z90.49 Acquired absence of other specified parts of digestive tract
CPT/HCPCS: 36415; 74177; 76830; 76856; 80053; 81001; 81025; 83690; 85025; 93975; 96361; 96374; 96375; 99284; 99285; J1170; Q9967; 81003; 87086

== ENCOUNTER 2021-08-22 14:34 | Outpatient (CLI) | payer MEDICAID | END 2021-08-22 14:35 | disposition home or self-care (01) | LOC: LAB 14:34 | PROVIDERS: ATTEND Nurse Practitioner Obstetrics & Gynecology | DX: O20.0 Threatened abortion (principal) | CPT/HCPCS: 36415; 84702 ==

== ENCOUNTER 2021-08-29 11:31 | Outpatient (CLI) | payer MEDICAID | END 2021-08-29 11:32 | disposition home or self-care (01) | LOC: LAB.N 11:31 | PROVIDERS: ATTEND Nurse Practitioner Obstetrics & Gynecology | DX: O20.0 Threatened abortion (principal) | CPT/HCPCS: 36415; 84702 ==

== ENCOUNTER 2021-09-05 12:33 | Outpatient (CLI) | payer MEDICAID | END 2021-09-05 12:34 | disposition home or self-care (01) | LOC: LAB.N 12:33 | PROVIDERS: ATTEND Nurse Practitioner Obstetrics & Gynecology | DX: O20.0 Threatened abortion (principal) | CPT/HCPCS: 36415; 84702 ==

== ENCOUNTER 2021-11-25 13:35 | Emergency (ER) | payer MEDICAID ==
[2021-11-25] MEDS ORDERED: KETOROLAC 30 MG/ML VIAL IVP STA (13:53)
[2021-11-25] MEDS ORDERED: diazePAM INJ 5 MG/ML SYRINGE IVP STA (13:53)
--- NOTE | 2021-11-25 13:56 | ED Physician Documentation ---
History of Present Illness - Stated complaint Stated Complaint: UPPER BACK/CHEST PX - Chief complaint Chief Complaint: Back Pain - Additonal information Additional information: 20-year-old female presents emergency department for evaluation of midthoracic back pain. Pain began 2 days ago. States that she simply was bending over to bulk picker her son. She is taken Tylenol since then without relief of symptoms. She arrives today via ambulance. On presentation she is crying and inconsolable. States that she has had back pain in the past but never like this. No leg swelling. States anytime she moves it hurts. No chest pain or shortness of air. LMP 11/04/2021. Not on OCP. Per EMS sheet pt received 300 mcg fentanyl prior to arrival. 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: No Does the pt have substance abuse?: No - Immunizations Immunizations are current?: Yes - POLST Patient has POLST: No PD ED PE EXPANDED - General General: Alert, In Pain, In distress (Crying) - Cardiac Cardiac: Regular Rate, Radial strong equal. No: Murmur Present - Respiratory Respiratory: Clear to ausultation bandar. No: Distress, Labored - Back Back: Vertebral tenderness (Lower mid thoracic lumbar tenderness without crepitus, step-off or deformity. There is tenderness across the bilateral thoracic paraspinous muscles as well), Other (Motor strength is 5 of 5 bilateral lower extremities without paresthesia. Normal dorsi and plantar flexion) - Neuro Neuro: Alert and Oriented X 3, CNII-XII intact - GCS Eye Opening: Spontaneous Motor: Obeys Commands Verbal: Oriented Total: 15 Results - Vitals Vitals: Vital Signs - 24 hr 11/25/21 11/25/21 11/25/21 13:44 15:18 15:30 Temperature 36.7 C Heart Rate 102 H 86 100 Respiratory 24 10 L 20 Rate Blood Pressure 124/84 H 115/85 H 115/72 O2 Saturation 94 100 99 11/25/21 11/25/21 16:00 16:30 Temperature Heart Rate 98 98 Respiratory 18 26 H Rate Blood Pressure 113/84 H 113/84 H O2 Saturation 99 98 Oxygen O2 Source Room air - Labs Labs: Laboratory Tests 11/25/21 11/25/21 11/25/21 14:19 14:19 14:19 WBC 8.4 RBC 4.54 Hgb 12.7 Hct 37.9 MCV 83.5 MCH 28.0 MCHC 33.5 RDW 14.1 Plt Count 255 MPV 10.4 Neut # (Auto) 5.0 Lymph # (Auto) 2.5 [place] # (Auto) 0.7 Eos # (Auto) 0.2 Baso # (Auto) 0.0 Absolute Nucleated RBC 0.00 Nucleated RBC % 0.0 Sodium 137 Potassium 3.5 Chloride 106 Carbon Dioxide 24 Anion Gap 7.0 BUN 13 Creatinine 0.6 Estimated GFR (MDRD) 126 Glucose 102 H Calcium 9.2 Total Bilirubin 0.4 AST 16 ALT 16 Alkaline Phosphatase 53 Total Protein 7.5 Albumin 4.4 Globulin 3.1 Albumin/Globulin Ratio 1.4 Lipase 24 Serum HCG, Qual NEGATIVE - Rads (name of study) Chest x-ray Radiology: Final report received (No acute cardiopulmonary abnormality) thoracic xr Radiology: Final report received (No acute abnormality of the thoracic spine. Mild rightward curvature of the upper thoracic spine) PD MEDICAL DECISION MAKING - ED course Complexity details: reviewed results, re-evaluated patient, considered differential, d/w patient, d/w family ED course: 20 year old female presents to the Ed for 2 days of acute thoracic back pain that Started 2 days ago when she bent over to bulk picker her son. Since then she has had pain that radiates across both sides of her In the bra line region. She presents crying and tearful. EMS had reportedly given her 300 mics of fentanyl without resolution of pain. On exam she had midline thoracic tenderness and pain with any movement. Suspecting some mild muscle spasm as well as a component of anxiety she was administered 2 mg of Valium. Shortly following this she briefly reduced her saturations to about 60%. With some stimulation and oxygen her saturations quickly rebounded to 97%. She was given 0.2 mg of Romazicon as a reversal agent and on reevaluation she remains sleepy but arouses easily to begin crying again. 1715: Patient has been in the emergency department now for about 3-1/2 hours and has been allowed time to metabolize the fentanyl and Valium that she was administered. On repeat evaluation she is able to ambulate with minimal assistance. We did obtain a screening labs as well as a chest x-ray and thoracic spine film that were all essentially negative. She was given a one- time dose of Decadron here in the emergency department and is encouraged to use ibuprofen at home for her back pain. I have also encouraged her to have close follow-up with her primary care provider to discuss if referral to physical therapy would be beneficial. Given the reaction to both the fentanyl and the Valium prescription of narcotic agents was deferred at this time. emergent return precautions discussed for worsening symptoms Departure - Departure Disposition: 01 Home, Self Care Clinical Impression: Acute thoracic back pain Qualifiers: Back pain laterality: bilateral Qualified Code(s): M54.6 - Pain in thoracic spine Condition: Stable Record reviewed to determine appropriate education?: Yes Comments: Gerda was seen today in the emergency department because you have had 3 days of midthoracic back pain. You feel like something is pinching your nerve. The paramedics gave you some fentanyl and on arrival to the emergency department I gave you Toradol which is like an injectable form of ibuprofen as well as a small dose of Valium to help with muscle spasms. However you had a negative reaction to these medications. After time here in the emergency department your pain is improved. I have given you a one-time dose of steroid which I think is going to help with pain and inflammation. In general I would like you to take ibuprofen 600 mg with food 2-3 times a day. You may benefit from referral to physical therapy so please call your primary care doctor on Saturday to discuss this. We did do a thoracic and chest x-ray which were essentially normal. If any point you develop difficulty breathing, high fevers higher than 102, have any fainting episode or worsening symptoms and please return immediately to the ER for second evaluation
[2021-11-25] MEDS ORDERED: FLUMAZENIL 0.1 MG/1 ML 5 ML MDV IVP STA (14:06)
[2021-11-25 14:29] LABS: BASOPHILS % (AUTO) 0.5 %; EOSINOPHILS # (AUTO) 0.2 10^3/uL (0.0-0.7); HCT - HEMATOCRIT 37.9 % (37.0-47.0); HGB - HEMOGLOBIN 12.7 g/dL (12.0-16.0); LYMPHOCYTES # (AUTO) 2.5 10^3/uL (1.5-3.5); LYMPHOCYTES % (AUTO) 30.2 %; MEAN CORPUSCULAR HGB CONC 33.5 g/dL (32.0-36.0); MEAN CORPUSCULAR VOLUME 83.5 fL (81.0-99.0); MEAN PLATELET VOLUME 10.4 fL (7.9-10.8); MONOCYTES # (AUTO) 0.7 10^3/uL (0.0-1.0); MONOCYTES % (AUTO) 7.9 %; NEUTROPHILS % (AUTO) 59.2 %; PLT - PLATELET COUNT 255 10^3/uL (130-450); RED BLOOD COUNT 4.54 10^6/uL (4.20-5.40); RED CELL DISTRIBUTION WIDTH 14.1 % (12.0-15.0); WHITE BLOOD COUNT 8.4 x10^3/uL (4.8-10.8)
[2021-11-25 14:40] LABS: ALBUMIN 4.4 g/dL (3.2-5.5); ALBUMIN/GLOBULIN RATIO 1.4 (1.0-2.2); BILIRUBIN,TOTAL 0.4 mg/dL (0.2-1.0); CALCIUM 9.2 mg/dL (8.5-10.3); CREATININE 0.6 mg/dL (0.4-1.0); POTASSIUM 3.5 mmol/L (3.5-5.0); TOTAL PROTEIN 7.5 g/dL (6.7-8.2)
[2021-11-25 14:50] LABS: HCG,QUALITATIVE BLOOD NEGATIVE
[2021-11-25] MEDS ORDERED: SODIUM CHLORIDE 0.9% 1,000 ML IV STA (14:52)
--- NOTE | 2021-11-25 15:12 | XRAY Report ---
PROCEDURE: Chest 1 View X-Ray INDICATIONS: thoracic back pain COMMENTS: Thoracic back pain/ Positioning limited due to pt cond ition and alertness PRIORS: none TECHNIQUE: One view of the chest was acquired. COMPARISON: None FINDINGS: Surgical changes and devices: None. Lungs and pleura: No pleural effusions or pneumothorax. Lungs are clear. Mediastinum: Mediastinal contours appear normal. Heart size is normal. Bones and chest wall: No suspicious bony lesions. Overlying soft tissues appear unremarkable. IMPRESSION: No acute cardiopulmonary abnormality Reviewed by: Jose R Caruso on 11/25/2021 2:11 PM [email or web address] Approved by: Jose R Caruso on 11/25/2021 2:11 PM AKDT Station ID: [id number]
--- NOTE | 2021-11-25 15:19 | XRAY Report ---
PROCEDURE: Thoracic Spine 2 View INDICATIONS: thoracic backpain TECHNIQUE: 3 views of the thoracic spine were acquired. COMPARISON: None. FINDINGS: Bones: No fractures or dislocations. No suspicious bony lesions. 12 pairs of ribs are noted, and a ppear intact where visualized. Mild rightward curvature of the upper thoracic spine. Soft tissues: No paravertebral stripe thickening. IMPRESSION: 1. No acute abnormality of the thoracic spine. 2. Mild rightward curvature of the upper thoracic spine. Reviewed by: Jose R Caruso on 11/25/2021 2:17 PM YAIR Approved by: Jose R Caruso on 11/25/2021 2:17 PM YAIR Station ID: [id number]
[2021-11-25] MEDS ORDERED: CHERRY SYRUP 10 ML UDC PO ONE (17:10)
[2021-11-25] MEDS ORDERED: DEXAMETHASONE 10 MG/ML VIAL PO STA (17:10)
[2021-11-25 17:16] VITALS: BP 110/76
== END 2021-11-25 17:29 | disposition home or self-care (01) ==
LOC: EDUNIT# → ED 13:35
DX: M54.6 Pain in thoracic spine (principal); T40.415A Adverse effect of fentanyl or fentanyl analogs, initial encounter; T42.4X5A Adverse effect of benzodiazepines, initial encounter; Y92.239 Unspecified place in hospital as the place of occurrence of the external cause; F41.9 Anxiety disorder, unspecified; R09.89 Other specified symptoms and signs involving the circulatory and respiratory systems
CPT/HCPCS: 36415; 71045; 72070; 80053; 83690; 84703; 85025; 96374; 96375; 99283; 99284; A9270

== ENCOUNTER 2022-05-19 12:21 | Outpatient (CLI) | payer MEDICAID | END 2022-05-19 12:22 | disposition home or self-care (01) | LOC: LAB 12:21 | PROVIDERS: ATTEND Nurse Practitioner Obstetrics & Gynecology | DX: N91.1 Secondary amenorrhea (principal) | CPT/HCPCS: 36415; 84702 ==

== ENCOUNTER 2022-05-21 12:52 | Outpatient (CLI) | payer MEDICAID | END 2022-05-21 12:53 | disposition home or self-care (01) | LOC: LAB.N 12:52 | PROVIDERS: ATTEND Nurse Practitioner Obstetrics & Gynecology | DX: N91.1 Secondary amenorrhea (principal) | CPT/HCPCS: 36415; 84702 ==

== ENCOUNTER 2023-04-15 14:06 | Outpatient (CLI) | payer MEDICAID | END 2023-04-15 14:07 | disposition home or self-care (01) | LOC: LAB 14:06 | PROVIDERS: ATTEND Nurse Practitioner Obstetrics & Gynecology | DX: N91.1 Secondary amenorrhea (principal) | CPT/HCPCS: 36415; 84702 ==

== ENCOUNTER 2023-04-17 13:46 | Outpatient (CLI) | payer MEDICAID | END 2023-04-17 13:47 | disposition home or self-care (01) | LOC: LAB 13:46 | PROVIDERS: ATTEND Nurse Practitioner Obstetrics & Gynecology | DX: N91.1 Secondary amenorrhea (principal) | CPT/HCPCS: 36415; 84702 ==

== ENCOUNTER 2023-04-19 12:43 | Outpatient (CLI) | payer MEDICAID | END 2023-04-19 12:44 | disposition home or self-care (01) | LOC: LAB 12:43 | PROVIDERS: ATTEND Nurse Practitioner Obstetrics & Gynecology | DX: N91.1 Secondary amenorrhea (principal) | CPT/HCPCS: 36415; 84702 ==

== ENCOUNTER 2023-04-26 12:54 | Emergency (ER) | payer MEDICAID ==
[2023-04-26 13:11] VITALS: O2SAT 100
[2023-04-26 13:37] LABS: BASOPHILS # (AUTO) 0.1 10^3/uL (0.0-0.1); BASOPHILS % (AUTO) 0.6 %; EOSINOPHILS # (AUTO) 0.1 10^3/uL (0.0-0.7); EOSINOPHILS % (AUTO) 1.7 %; HCT - HEMATOCRIT 39.5 % (37.0-47.0); HGB - HEMOGLOBIN 13.4 g/dL (12.0-16.0); LYMPHOCYTES # (AUTO) 2.2 10^3/uL (1.5-3.5); LYMPHOCYTES % (AUTO) 25.4 %; MEAN CORPUSCULAR HEMOGLOBIN 29.7 pg (27.0-31.0); MEAN CORPUSCULAR HGB CONC 33.9 g/dL (32.0-36.0); MEAN CORPUSCULAR VOLUME 87.6 fL (81.0-99.0); MEAN PLATELET VOLUME 9.6 fL (7.9-10.8); MONOCYTES # (AUTO) 0.6 10^3/uL (0.0-1.0); NEUTROPHILS # (AUTO) 5.5 10^3/uL (1.5-6.6); NEUTROPHILS % (AUTO) 65.2 %; PLT - PLATELET COUNT 294 10^3/uL (130-450); RED BLOOD COUNT 4.51 10^6/uL (4.20-5.40); RED CELL DISTRIBUTION WIDTH 12.7 % (12.0-15.0); WHITE BLOOD COUNT 8.5 x10^3/uL (4.8-10.8)
[2023-04-26 13:51] LABS: ALBUMIN 4.7 g/dL (3.2-5.5); ALBUMIN/GLOBULIN RATIO 1.8 (1.0-2.2); BILIRUBIN,TOTAL 0.5 mg/dL (0.2-1.0); CREATININE 0.7 mg/dL (0.6-1.3); POTASSIUM 3.8 mmol/L (3.5-4.5); TOTAL PROTEIN 7.3 g/dL (6.4-8.9)
[2023-04-26 14:22] LABS: BILIRUBIN,URINE NEGATIVE (NEGATIVE); GLUCOSE, URINE (UA) NEGATIVE (NEGATIVE); KETONES,URINE (UA) NEGATIVE (NEGATIVE); LEUKOCYTE ESTERASE, URINE TRACE (NEGATIVE); NITRITE,URINE NEGATIVE (NEGATIVE); OCCULT BLOOD,URINE NEGATIVE (NEGATIVE); PROTEIN,URINE NEGATIVE (NEGATIVE); UROBILINOGEN,URINE 0.2 (NORMAL) E.U./dL (NORMAL)
[2023-04-26] MEDS ORDERED: SODIUM CHLORIDE 0.9% 1,000 ML IV STA (14:22)
[2023-04-26] MEDS ORDERED: METOCLOPRAMIDE 10 MG/2 ML VIAL IVP STA (14:22)
--- NOTE | 2023-04-26 14:23 | ED Physician Documentation ---
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 She does not have any stomach pain, pelvic pain, cramping, bleeding, nor fluid loss. She did have a lot of vomiting with her first . 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 : None HEENT: None Psych: Depression, Anxiety Musculoskeletal: None Derm: None - Past Surgical History Past Surgical History: Yes General: Cholecystectomy HEENT: Tonsil/Adenoidectomy - Present Medications Home Medications: Ambulatory Orders Medication Instructions Recorded Confirmed Ondansetron Odt [Zofran Odt] 4 mg TL Q6H PRN #10 tablet 12/10/20 Metoclopramide [Reglan] 10 mg PO Q6H PRN #20 tablet 04/26/23 - Allergies Allergies/Adverse Reactions: Allergies Allergy/AdvReac Type Severity Reaction Status Date / Time morphine Allergy Unknown Verified 11/25/21 13:50 - Social History Does the pt smoke?: No Smoking Status: Never smoker Does the pt drink ETOH?: No Does the pt have substance abuse?: No - Immunizations Immunizations are current?: Yes - POLST Patient has POLST: No PD ED PE NORMAL - Vitals Vital signs reviewed: Yes - General General: Alert and oriented X 3, No acute distress - Abdomen Abdomen: Normal bowel sounds, Soft, Non tender, Other (I am able to visualize an IUP on bedside ultrasound, but it is too small to get any details or heart rate but there is definitely a pole and no free fluid.) - Neuro Neuro: Alert and oriented X 3 Results - Vitals Vitals: Vital Signs - 24 hr 04/26/23 13:07 Temperature 36.3 C L Heart Rate 89 Respiratory 18 Rate Blood Pressure 125/72 O2 Saturation 100 Oxygen O2 Source Room air - Labs Labs: Laboratory Tests 04/26/23 04/26/23 04/26/23 13:33 13:33 14:11 WBC 8.5 RBC 4.51 Hgb 13.4 Hct 39.5 MCV 87.6 MCH 29.7 MCHC 33.9 RDW 12.7 Plt Count 294 MPV 9.6 Neut # (Auto) 5.5 Lymph # (Auto) 2.2 [place] # (Auto) 0.6 Eos # (Auto) 0.1 Baso # (Auto) 0.1 Absolute Nucleated RBC 0.00 Nucleated RBC % 0.0 Sodium 138 Potassium 3.8 Chloride 105 Carbon Dioxide 27 Anion Gap 6.0 BUN 7 Creatinine 0.7 Estimated GFR (MDRD) 104 Glucose 81 Calcium 10.0 Total Bilirubin 0.5 AST 14 ALT 15 Alkaline Phosphatase 51 Total Protein 7.3 Albumin 4.7 Globulin 2.6 Albumin/Globulin Ratio 1.8 Lipase 13 Urine Color YELLOW Urine Clarity HAZY Urine pH 7.0 Ur Specific [place] 1.015 Urine Protein NEGATIVE Urine Glucose (UA) NEGATIVE Urine Ketones NEGATIVE Urine Occult Blood NEGATIVE Urine Nitrite NEGATIVE Urine Bilirubin NEGATIVE Urine Urobilinogen 0.2 (NORMAL) Ur Leukocyte Esterase TRACE H Urine RBC None Seen Urine WBC 6-10 H Ur Squamous Epith Cells MOD Squamous H Urine Bacteria Few Ur Microscopic Review INDICATED Urine Culture Comments NOT INDICATED Urine HCG, Qual POSITIVE PD Medical Decision Making - ED course ED course: 22-year-old G4, P1 presents with vomiting in , benign exam and reassuring bedside ultrasound. After the administration of IV fluids and IV Reglan she was feeling better and passed p.o. challenge. CBC, CMP, and urinalysis were unremarkable. Departure - Departure Disposition: 01 Home, Self Care Clinical Impression: Hyperemesis Condition: Good Record reviewed to determine appropriate education?: Yes Instructions: ED Preg Morning Sickness Prescriptions: Metoclopramide [Reglan] 10 mg PO Q6H PRN #20 tablet PRN Reason: nausea or headache Comments: [facility] [place]. Call your doctor to arrange a follow-up appointment, make the next available appointment. In the interim, return anytime if worse or if new symptoms develop. Forms: PCP List
[2023-04-26 14:26] LABS: CLARITY,URINE HAZY (CLEAR); HCG UR QUAL POSITIVE
[2023-04-26 14:29] LABS: BACTERIA,URINE Few /HPF (None Seen); RBC,URINE None Seen /HPF (0-5); SQUAMOUS EPITHELIAL CELL,UR MOD Squamous (<= Few)
[2023-04-26 15:39] VITALS: BP 120/76
== END 2023-04-26 15:33 | disposition home or self-care (01) ==
LOC: ED 12:54
DX: O21.0 Mild hyperemesis gravidarum (principal); Z3A.01 Less than 8 weeks gestation of pregnancy
CPT/HCPCS: 36415; 80053; 81001; 81025; 83690; 85025; 96374; 99283; 99284; J2765; 81003; 87086

== ENCOUNTER 2023-05-08 14:16 | Outpatient (CLI) | payer MEDICAID ==
[2023-05-08 18:20] LABS: THYROID STIMULATING HORMONE 1.83 uIU/mL (0.34-5.60)
[2023-05-11 18:07] LABS: CARDIOLIPIN IGG <9 GPL U/mL (0-14); CARDIOLIPIN IGM <9 MPL U/mL (0-12)
== END 2023-05-08 14:17 | disposition home or self-care (01) ==
LOC: LAB.N 14:16
PROVIDERS: ATTEND Nurse Practitioner Obstetrics & Gynecology
DX: N96 Recurrent pregnancy loss (principal); N91.1 Secondary amenorrhea
CPT/HCPCS: 36415; 81241; 81599; 84439; 84443; 84702; 85598; 85613; 85732; 86146; 86147

== ENCOUNTER 2023-10-08 14:35 | Emergency (ER) | payer BC, MEDICAID ==
[2023-10-08 14:50] VITALS: O2SAT 100
--- NOTE | 2023-10-08 14:57 | ED Physician Documentation ---
History of Present Illness - Stated complaint Stated Complaint: ,UNWELL - Chief complaint Chief Complaint: Abd Pain - History obtained from History obtained from: Patient - Additonal information Additional information: 22-year-old otherwise healthy G5, P1 with history of 3 miscarriages. LMP of August 03 putting her at 7 weeks 9 days today. She recently found out she was and became nauseous yesterday with scant vaginal bleeding/spotting today. No pelvic pain. She is desirous of . 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 : None HEENT: None Psych: Depression, Anxiety Musculoskeletal: None Derm: None - Past Surgical History Past Surgical History: Yes General: Cholecystectomy HEENT: Tonsil/Adenoidectomy - Present Medications Home Medications: Ambulatory Orders Medication Instructions Recorded Confirmed Metoclopramide [Reglan] 10 mg PO Q6H PRN #20 tablet 10/08/23 - Allergies Allergies/Adverse Reactions: Allergies Allergy/AdvReac Type Severity Reaction Status Date / Time morphine Allergy Unknown Verified 10/08/23 14:44 - Social History Does the pt smoke?: No Smoking Status: Never smoker Does the pt drink ETOH?: No Does the pt have substance abuse?: No - Immunizations Immunizations are current?: Yes - POLST Patient has POLST: No PD ED PE NORMAL - Vitals Vital signs reviewed: Yes - General General: Alert and oriented X 3, No acute distress - Abdomen Abdomen: Normal bowel sounds, Soft, Non tender, Other (Bedside ultrasound demonstrates what looks like a intrauterine sac without detail or heart rate. No free fluid.) - Neuro Neuro: Alert and oriented X 3 Results - Vitals Vitals: Vital Signs - 24 hr 10/08/23 10/08/23 14:41 16:31 Temperature 36.8 C Heart Rate 96 95 Respiratory 16 18 Rate Blood Pressure 137/79 H 116/79 O2 Saturation 100 100 Oxygen O2 Source Room air - Labs Labs: Laboratory Tests 10/08/23 10/08/23 15:02 16:00 Sodium 136 Potassium 3.3 L Chloride 103 Carbon Dioxide 26 Anion Gap 7.0 BUN 10 Creatinine 0.8 Estimated GFR (MDRD) 89 Glucose 95 Calcium 9.7 Beta HCG, Quant 8695.2 Urine Color LT RED Urine Clarity HAZY Urine pH 6.0 Ur Specific [place] <=1.005 Urine Protein NEGATIVE Urine Glucose (UA) NEGATIVE Urine Ketones NEGATIVE Urine Occult Blood LARGE H Urine Nitrite NEGATIVE Urine Bilirubin NEGATIVE Urine Urobilinogen 0.2 (NORMAL) Ur Leukocyte Esterase TRACE H Urine RBC TNTC H Urine WBC 0-3 Ur Squamous Epith Cells MOD Squamous H Urine Bacteria Few Ur Microscopic Review INDICATED Urine Culture Comments NOT INDICATED - Rads (name of study) OB sono- see mdm Relevant Findings:: Prelim report reviewed PD Medical Decision Making - ED course ED course: She presents with concerns for miscarriage in the setting of prior miscarriages and she is desirous of . Bedside ultrasound basically ruled out ectopic and subsequently a formal ultrasound was done and per the consideration RDMS She has what looks like an IUP with discordant dates. Discussed with patient that this was neither reassuring nor terribly bad at this point and probably needs a repeat beta-hCG in 2 days and ultrasound in about a week. She voices understanding. She was feeling better after the administration of IV fluids and Reglan. Workup in the emergency department demonstrated urinalysis mostly with blood but contaminated but lacking urinary symptoms would not repeat. Modest hypokalemia probably due to her nausea and a beta-hCG of 8695. Departure - Departure Disposition: 01 Home, Self Care Clinical Impression: Threatened Condition: Stable Record reviewed to determine appropriate education?: Yes Instructions: ED Miscarriage Poss Prescriptions: Metoclopramide [Reglan] 10 mg PO Q6H PRN #20 tablet PRN Reason: nausea or headache Comments: You were seen today for very valid concerns about bleeding and feeling bad during the . Results today were neither good nor bad I do not think. Your beta hCG was 8695 and your ultrasound demonstrated an likely intrauterine but smaller than we would expect based on your dates. Recommend you follow-up with your primary care/OB nurse practitioner. Suspect she will want to repeat the beta-hCG value in about 48 hours and probably the ultrasound in a week or so. Return for new or worsening symptoms. Forms: PCP List Discharge Date/Time: 10/08/23 16:31
[2023-10-08] MEDS: SODIUM CHLORIDE 0.9% 1,000 ML IV STA (15:05)
[2023-10-08] MEDS: METOCLOPRAMIDE 10 MG/2 ML VIAL IVP STA (15:06)
[2023-10-08 15:26] LABS: CALCIUM 9.7 mg/dL (8.5-10.3); CREATININE 0.8 mg/dL (0.6-1.3); POTASSIUM 3.3 mmol/L (3.5-4.5)
[2023-10-08 16:10] LABS: BILIRUBIN,URINE NEGATIVE (NEGATIVE); GLUCOSE, URINE (UA) NEGATIVE (NEGATIVE); KETONES,URINE (UA) NEGATIVE (NEGATIVE); LEUKOCYTE ESTERASE, URINE TRACE (NEGATIVE); NITRITE,URINE NEGATIVE (NEGATIVE); OCCULT BLOOD,URINE LARGE (NEGATIVE); PROTEIN,URINE NEGATIVE (NEGATIVE); UROBILINOGEN,URINE 0.2 (NORMAL) E.U./dL (NORMAL)
[2023-10-08 16:13] LABS: CLARITY,URINE HAZY (CLEAR)
[2023-10-08 16:19] LABS: BACTERIA,URINE Few /HPF (None Seen); RBC,URINE TNTC /HPF (0-5); SQUAMOUS EPITHELIAL CELL,UR MOD Squamous (<= Few); WBC,URINE 0-3 /HPF (0-5)
[2023-10-08 16:33] VITALS: BP 116/79
--- NOTE | 2023-10-08 17:20 | Ultrasound Report ---
PROCEDURE: OB 1st Trimester w/TV INDICATIONS: preg vb OUTSIDE/PRIOR DATING DATA: Last menstrual period (LMP): 08/14/2023. LMP-based estimated date of delivery (DENIS): 05/20/2024. First dating scan (date and location): Applicable. Estimated date of delivery (DENIS) from first dating scan: Not applicable. TECHNIQUE: Real-time scanning was performed of the fetus and maternal pelvic organs, with image documentation. Endovaginal scanning was also performed to better visualize the fetus and maternal ovaries. COMPARISON: None. FINDINGS: Intrauterine gestational sac present. Embryo: 0.33 cm pole corresponds to a 6 week 0 day gestation. Heart rate: No cardiac motion observed. Other: No perigestational fluid collection. Measurement variability in dating: +/- 4 weeks by LMP, +/- 7 days by mean sac diameter (use before 6 weeks gestation if crown-rump length not able to be measured), +/- 5 days by crown-rump length (6-12 weeks gestation). Maternal organs: Ovaries appear within normal limits. IMPRESSION: pole 3 mm without cardiac motion. Differential possibilities include normal early and demise. Consider short-term interval follow-up Reviewed by: Cong Smith MD on 10/08/2023 4:18 PM YAIR Approved by: Cong Smith MD on 10/08/2023 4:18 PM YAIR Station ID: [id number]
== END 2023-10-08 16:31 | disposition home or self-care (01) ==
LOC: ED 14:35
DX: O20.0 Threatened abortion (principal); Z3A.01 Less than 8 weeks gestation of pregnancy
CPT/HCPCS: 36415; 76801; 76817; 80048; 81001; 84702; 96374; 99284; J2765; 81003; 87086

== ENCOUNTER 2023-10-10 10:57 | Outpatient (CLI) | payer BC | END 2023-10-10 10:58 | disposition home or self-care (01) | LOC: LAB.N 10:57 | PROVIDERS: ATTEND Nurse Practitioner Obstetrics & Gynecology | DX: O20.0 Threatened abortion (principal) | CPT/HCPCS: 36415; 84702 ==

== ENCOUNTER 2023-11-18 14:28 | Outpatient (CLI) | payer BC | END 2023-11-18 14:29 | disposition home or self-care (01) | LOC: LAB.N 14:28 | PROVIDERS: ATTEND Nurse Practitioner Obstetrics & Gynecology | DX: O20.0 Threatened abortion (principal) | CPT/HCPCS: 36415; 84144; 84702 ==

== ENCOUNTER 2023-11-20 13:54 | Outpatient (CLI) | payer BC | END 2023-11-20 13:55 | disposition home or self-care (01) | LOC: LAB.N 13:54 | PROVIDERS: ATTEND Nurse Practitioner Obstetrics & Gynecology | DX: O20.0 Threatened abortion (principal) | CPT/HCPCS: 36415; 84702 ==

== ENCOUNTER 2024-07-16 07:53 | Inpatient (IN) ==
[2024-07-16] MEDS ORDERED: lidocaine 1% 20 ML MDV ID PRN (08:51)
[2024-07-16] MEDS ORDERED: LABETALOL 20 MG/4 ML SYRINGE IVP PRN ×3 (08:51)
[2024-07-16] MEDS ORDERED: CARBOPROST TROMETHAMINE 250 MCG/ML VIAL IM PRN (08:51)
[2024-07-16] MEDS ORDERED: LACTATED RINGERS 1,000 ML IV PRN (08:51)
[2024-07-16] MEDS ORDERED: hydrALAZINE INJ 20 MG/ML VIAL IVP PRN ×2 (08:51)
[2024-07-16] MEDS ORDERED: METHYLERGONOVINE 0.2 MG/ML VIAL IM PRN (08:51)
[2024-07-16] MEDS ORDERED: TRANEXAMIC ACID IN NACL 1,000 MG/100 ML BAG IV PRN (08:51)
[2024-07-16] MEDS ORDERED: SODIUM CHLORIDE FLUSH 0.9% 10 ML SYRINGE IVP PRN (08:51)
[2024-07-16] MEDS ORDERED: NIFEdipine 10 MG CAPSULE PO PRN (08:51)
[2024-07-16] MEDS ORDERED: OXYTOCIN 10 UNIT/ML VIAL IM PRN (08:51)
[2024-07-16] MEDS ORDERED: miSOPROStoL 200 MCG TABLET BC PRN (08:51)
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
[2024-07-16 09:00] LABS: BASOPHILS % (AUTO) 0.2 %; EOSINOPHILS # (AUTO) 0.1 10^3/uL (0.0-0.7); EOSINOPHILS % (AUTO) 1.2 %; HCT - HEMATOCRIT 36.3 % (37.0-47.0); HGB - HEMOGLOBIN 11.6 g/dL (12.0-16.0); LYMPHOCYTES # (AUTO) 1.9 10^3/uL (1.5-3.5); LYMPHOCYTES % (AUTO) 20.5 %; MEAN CORPUSCULAR HEMOGLOBIN 26.4 pg (27.0-31.0); MEAN CORPUSCULAR VOLUME 82.5 fL (81.0-99.0); MONOCYTES # (AUTO) 0.7 10^3/uL (0.0-1.0); MONOCYTES % (AUTO) 7.6 %; NEUTROPHILS # (AUTO) 6.4 10^3/uL (1.5-6.6); NEUTROPHILS % (AUTO) 69.9 %; PLT - PLATELET COUNT 245 10^3/uL (130-450); RED CELL DISTRIBUTION WIDTH 14.8 % (12.0-15.0); WHITE BLOOD COUNT 9.1 x10^3/uL (4.8-10.8)
[2024-07-16] MEDS ORDERED: miSOPROStoL 100 MCG TABLET VG SCH (09:00)
[2024-07-16] MEDS: miSOPROStoL 100 MCG TABLET BC SCH (09:14)
--- NOTE | 2024-07-16 11:27 | PHARMACY PROGRESS NOTE ---
Best Possible Medication History Admit Date and Time: 07/16/24 0851 Home Medications Medication Instructions Recorded Confirmed Type vit no.95-ferrous 1 tab PO QDAY 04/01/24 07/16/24 History fumarate 28 mg-folic acid 800 mcg tablet () famotidine 20 mg tablet 20 mg PO DAILY #14 tabs 05/05/24 07/16/24 Rx ondansetron HCl 4 mg tablet 4 mg PO Q8H PRN nausea and 05/05/24 07/16/24 Rx vomiting #14 tabs metoclopramide HCl 5 mg tablet 5 mg PO .q6 hours PRN nausea and 05/14/24 Rx (Reglan) vomiting #14 tabs rizatriptan 5 mg tablet See Rx Instructions PO .COMPLEX 05/14/24 07/16/24 Rx #10 tabs Processed by: Pharmacy Medications reviewed in ED?: No Medication History completed: Yes [facility] Statement: As the person ultimately responsible for medication therapy, providers are able to order a medication from an existing home medication list in [facility] via the "Reconcile Routine" prior to Confirmation of that medication by academic support director. Such practice is discouraged except when the physician, in their clinical judgment, deems that a medical need exists for a medication without regard to previous use.
[2024-07-16] MEDS: SODIUM CHLORIDE FLUSH 0.9% 10 ML SYRINGE IVP SCH (20:02)
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
[2024-07-17] MEDS: LACTATED RINGERS 1,000 ML IV PRN (04:31)
[2024-07-17] MEDS: OXYTOCIN/SODIUM CHLORIDE 500 ML IV PRN (04:49)
--- NOTE | 2024-07-17 05:10 | DELIVERY NOTE ---
Delivery Note Delivery Comments (Free Text/Narrative) Delivery Comments (Free Text/Narrative): Labor: This 23yo @ 39.1 wks gestation by 8wk U/S presented to [facility] for elective IOL. Cervical exam was initially deferred per pt request. Vertex by Nixon'francine. She received 3 doses of BC misoprostol for pre-induction cervical ripening followed by onset of active labor. FHR demonstrated Category I pattern throughout labor. Normal labor course. AROM occurred @ 0028 on 07/17/2024 and was noted to be a moderate amount of clear fluid. She progressed to c/c and pushing at 0445. : Normal SVB of viable female on 07/17/2024 @ 0447. No nucal. The was placed on maternal abdomen, stimulated, dried, and placed skin to skin. 's were 9/9 at 1 and 5 min respectively. Pitocin administered via IV for hemostasis. The umbilical cord was allowed to stop pulsating at which time it was doubly clamped by CNM and cut by FOB. Cord blood was obtained. 3VC. Fundal massage and gentle cord traction applied for active management of the third stage. Placenta delivered spontaneously and intact at 0456. QBL 100mL. Fourth stage: Uterine fundus firm and there is no excessive bleeding. The perineum, vagina, and cervix were inspected and found to be intact. Skin to skin contact maintained. Both mother and baby were left in stable condition.
[2024-07-17] MEDS ORDERED: WITCH HAZEL/GLYCERIN 1 PAD TOP PRN (05:23)
[2024-07-17] MEDS ORDERED: SIMETHICONE CHEW 80 MG TABLET PO PRN (05:23)
[2024-07-17] MEDS ORDERED: HYDROCORTISONE 1% CREAM 28 GM TUBE TOP PRN (05:23)
[2024-07-17] MEDS ORDERED: OXYTOCIN/SODIUM CHLORIDE 500 ML IV PRN (05:23)
[2024-07-17] MEDS: ACETAMINOPHEN 500 MG TABLET PO PRN (05:42)
[2024-07-17] MEDS: IBUPROFEN 800 MG TABLET PO PRN (07:19)
[2024-07-17] MEDS: DOCUSATE SODIUM 100 MG CAPSULE PO SCH (09:00)
[2024-07-17 14:27] VITALS: O2SAT 98
[2024-07-18 09:33] VITALS: BP 121/80; TEMP 97.6
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
--- NOTE | 2024-07-18 14:30 | Labor Flowsheet ---
Labor Flowsheet Datetime Report Generated by CPN: 07/18/2024 14:29 Datetime: 07/18/2024 09:02 VITAL SIGNS NBP Sys/Dorinda/Mean (mmHg): 121 : 80 : 86 Pulse: 91 Datetime: 07/18/2024 05:36 Stage of : Datetime: 07/17/2024 19:29 SpO2 (%): 99 Datetime: 07/17/2024 10:40 LaborFlag: Labor Datetime: 07/17/2024 04:45 UTERINE ACTIVITY Monitor Mode: External Frequency (min): 2-3 Quality: Strong Duration (sec): 60-90 Pattern: Normal: <= 5 Contractions in 10 Minutes Resting Tone (Palpate): Relaxed ASSESSMENT A Monitor Mode: External US FHR Baseline Rate : 135 Variability: Moderate 6-25 bpm Accelerations: None Decelerations: Early; Variable Actions for Decelerations: IV Bolus; Sterile Vaginal Exam Comments: complete and pushing VAGINAL EXAM Dilatation (cm): 10.0 Effacement (%): 100 Station: 3 Exam by: Qing Vaginal Bleeding: Scant Cervix, Consistency: Soft Cervix, Position: Midposition Datetime: 07/17/2024 04:43 COMMUNICATION Communication: RN at Bedside Datetime: 07/17/2024 04:38 Communication Comments: provider left bedside at this time Datetime: 07/17/2024 04:26 PAIN Pain Scale: 8 Pain Presence: Intermittent Pain Location: Abdomen Pain Coping: Requesting Pain Medication or Epidural; Crying Pain Assessment Comments: pt requesting nitrous; provider at bedside Comfort Measures: Breathing/Relaxation; Coaching; Family Support Datetime: 07/17/2024 03:52 Monitor Interventions for UA: [place] Adjusted Datetime: 07/17/2024 03:50 Monitor Interventions for FHR: Ultrasound Adjusted Datetime: 07/17/2024 03:35 Membranes Ruptured Date/Time: 07/17/2024 00:28 Datetime: 07/17/2024 03:19 Provider Notified (Name): A.Fina Datetime: 07/17/2024 02:30 Category: Category I Datetime: 07/17/2024 01:07 Pain Type: Cramping; Pressure Pain Relief Measures: Comfort Measures Datetime: 07/17/2024 00:28 Membrane Status: Ruptured Membranes Rupture Method: Artificial Amniotic Fluid Color: Clear Amniotic Fluid Amount: Moderate Amniotic Fluid Odor: Normal Pool: Positive Membrane Comments: AROM by senior wind energy consultant Datetime: 07/17/2024 00:00 Contraction Comments: couplets noted Datetime: 07/16/2024 23:00 FHR Baseline Changes: No Baseline Change Datetime: 07/16/2024 22:58 Strip Reviewed by: Kevin and NahomyFina Notification Reason: Status Update; Status; Uterine Activity; Pain Datetime: 07/16/2024 22:38 I/O Interventions: Up to BR Datetime: 07/16/2024 22:03 Hygiene: Complete Bath Patient Care Comments: soaking in jacuzzi tub Datetime: 07/16/2024 21:18 PATIENT CARE Patient Position/Activity: Walking Datetime: 07/16/2024 20:07 Temperature (C): 36.6 Temperature Route: Oral Datetime: 07/16/2024 17:28 Respirations: 18 Datetime: 07/16/2024 17:27 MEDICATIONS Cervical Ripening Agents: Cytotec @
== END 2024-07-18 12:15 | disposition home or self-care (01) | DRG 807 ==
LOC: WFO 07:53 → FBP 07:55
PROVIDERS: ADMIT Nurse Practitioner Obstetrics & Gynecology; ATTEND Nurse Practitioner Obstetrics & Gynecology